=== PATIENT | male | born 1970 | race American Indian/Alaskan Native ===

== ENCOUNTER 2020-06-10 21:32 | Emergency (ER) | payer SELFPAY ==
[2020-06-10 21:47] VITALS: BP 183/119
--- NOTE | 2020-06-10 22:20 | Event Note ---
ED Screening Note Date of service: 06/10/20 Time: 22:18 ED Screening Note: pt presents for cough sob x 1 weeks, states pos COVID test 1 week ago with worsening symptoms , states fever chills, malaise , and sob, This initial assessment/diagnostic orders/clinical plan/treatment(s) is/are subject to change based on patients health status, clinical progression and re- assessment by fellow clinical providers in the ED. Further treatment and workup at subsequent clinical providers discretion. Patient/guardian urged not to elope from the ED as their condition may be serious if not clinically assessed and managed. Initial orders include: CXR, EKG, TROP, PT, PTT, CMP, CBC, Lactic Acid,
--- NOTE | 2020-06-10 23:16 | XRay Report ---
CHEST 2 VIEWS INDICATION / CLINICAL INFORMATION: cough sob. COMPARISON: None available. FINDINGS: SUPPORT DEVICES: None. HEART / MEDIASTINUM: No significant abnormality. LUNGS / PLEURA: Scattered bilateral pulmonary opacities are noted. No pneumothorax. ADDITIONAL FINDINGS: No significant additional findings. IMPRESSION: 1. Scattered bilateral pulmonary opacities likely represent viral versus atypical infectious process. Signer Name: Nico Nuno MD Signed: 06/10/2020 11:12 PM Workstation Name: [id number]
[2020-06-10 23:18] LABS: Basophils % (Auto) 0.2 % (0.0-1.8); Hematocrit 47.2 % (35.5-45.6); Hemoglobin 16.2 gm/dl (11.8-15.2); Lymphocytes # (Auto) 0.8 K/mm3 (1.2-5.4); Lymphocytes % (Auto) 8.7 % (13.4-35.0); Mean Corpuscular HGB Conc 34 % (32-34); Mean Corpuscular Volume 94 fl (84-94); Monocytes # (Auto) 0.6 K/mm3 (0.0-0.8); Monocytes % (Auto) 5.8 % (0.0-7.3); Platelet Count 385 K/mm3 (140-440); Red Blood Count 5.01 M/mm3 (3.65-5.03); Red Cell Distribution Width 13.5 % (13.2-15.2)
[2020-06-10 23:39] LABS: INR 1.07 (0.87-1.13)
[2020-06-10 23:40] LABS: Partial Thromboplastin Time 31.5 Sec. (24.2-36.6)
[2020-06-10 23:47] LABS: Alanine Aminotransferase 75 units/L (7-56); Albumin 4.3 g/dL (3.9-5); BUN/Creatinine Ratio 15; Blood Urea Nitrogen 18 mg/dL (9-20); Calcium 9.5 mg/dL (8.4-10.2); Hemolysis Index 6
[2020-06-11] MEDS ORDERED: SODIUM CHLORIDE 0.9% 1000 ML 1,000 ML IV ONE (00:09)
== END 2020-06-11 00:40 | disposition left against medical advice (07) ==
LOC: ED 21:32
DX: I10 Essential (primary) hypertension (principal); Z53.21 Procedure and treatment not carried out due to patient leaving prior to being seen by health care provider
CPT/HCPCS: 36415; 71046; 80053; 82140; 84484; 85025; 85610; 85730